=== PATIENT | female | born 1975 | race Caucasian/White ===

== ENCOUNTER → 2017-04-09 | Outpatient (CLI) | payer BC ==
--- NOTE | ~2017-04-09 | EKG ---
PATIENT: JOHNSON MÉNDEZ UNIT #: [id number] Ventricular Rate: 63 BPM Atrial Rate: 63 BPM P-R Interval: 160 ms QRS Duration: 86 ms Q-T Interval: 438 ms QTC Calculation(Bezet): 448 ms P [place]: 21 degrees Calculated R [place]: -16 degrees Calculated T [place]: 6 degrees Diagnosis Line: Normal sinus rhythm Diagnosis Line: Voltage criteria for left ventricular hypertrophy Diagnosis Line: Nonspecific ST abnormality Diagnosis Line: Abnormal ECG Diagnosis Line: No previous ECGs available Diagnosis Line: Confirmed by TOM CHERRY MD ([id number]) on Diagnosis Line: 04/10/2017 12:34:16 PM INTERPRETING MD: JO ANN PENDLETON
--- NOTE | ~2017-04-09 | CR63 ---
[facility] A Service of [facility] & [facility] RADIOLOGY TEXT RESULTS PATIENT: JOHNSON MÉNDEZ LOCATION: [facility] : 75 UNIT #: [id number] AGE: [address]: Robbin Taveras MD SEX: F ORDER DR: [id number] [facility] [address] [place], [place] [address] [id number] O MR#: [id number] Acc #: [id number] NAME: JOHNSON MÉNDEZ : 1975 SEX: F STUDY DATE/TIME: 04/09/2017 13:27 UNIT: [facility] ROOM: STUDY DESCRIPTION: CR Chest 2 View Attending Physician: Robbin Taveras M.D. Referring Physician: Robbin Taveras M.D. Ordering Physician: Robbin Taveras M.D. Primary Care Physician: Teddy Martin M.D. MEDICAL IMAGING REPORT This report is preliminary unless electronic signature is present EXAM Chest 04/09/17, [facility]. HISTORY 41-year-old woman preop clearance right total knee arthroplasty. Osteoarthritis right knee. History of hypertension, anesthesia problems. COMPARISON Preop 12/27/06. FINDINGS Two-view chest demonstrates normal cardiac size and configuration. Hilar structures and mediastinal contours are preserved. Bilateral lungs are expanded and clear with prompt probable small granuloma near the left costophrenic angle. Congenital anomaly left first, second ribs. IMPRESSION Stable chest with no acute chest finding. Dictated by... Panda Bryant M.D. THIS IS AN ELECTRONICALLY VERIFIED REPORT Panda Bryant M.D. at 04/10/2017 8:05 AM SKY/mitesh TD: 04/10/2017 07:07 JOB #: [id number] MEDICAL IMAGING REPORT Page 1 of 1 COPY
[2017-04-09 13:10] LABS: HEMATOCRIT 35.1 % (35.0-45.0); HEMOGLOBIN 12.2 gm/dL (12.0-16.0); MEAN CELL VOLUME 86.5 FL (83-96); MEAN CORPUSCULAR HEMOGLOBIN 30.2 PG (28-34); MEAN CORPUSCULAR HGB CONC 34.9 g/dL (30-36); MEAN PLATELET VOLUME 8.5 FL (6.5-11.5); RED BLOOD COUNT 4.06 X10e (3.90-5.30); RED CELL DISTRIBUTION WIDTH 12.9 % (11.0-15.5); WHITE BLOOD COUNT 9.2 X10e3 (4.0-10.5)
[2017-04-09 13:15] LABS: URINE APPEARANCE CLEAR; URINE BILIRUBIN NEG (NEG); URINE BLOOD 2+ (NEG); URINE COLOR YELLOW; URINE GLUCOSE NEG (NEG); URINE KETONE NEG (NEG); URINE LEUKOCYTE ESTERASE NEG (NEG); URINE NITRATE NEG (NEG); URINE PROTEIN NEG (NEG); URINE SPECIFIC GRAVITY 1.027 (1.003-1.035); URINE UROBILINOGEN 0.2 MG/DL (NEG)
[2017-04-09 13:18] LABS: U HYALINE CASTS AUWI 0-2 /[LPF]; URINE BACTERIA AUWI NEG (NEGATIVE); URINE SQUAMOUS EPITHELIAL CELL NONE SEEN /[HPF]; UWBCS1 AUWI 0-2 (0-5)
[2017-04-09 13:22] LABS: CULTURE INDICATED? NO; URINE SOURCE CLEAN CATCH
[2017-04-09 13:36] LABS: CALCIUM SERUM 9.7 mg/dL (8.4-10.2); CREATININE SERUM 0.8 mg/dL (0.6-1.4); GLOM FILT RATE Estimated 91.7 mL/min (>60)
[2017-04-09 13:42] LABS: PROTHROMBIN TIME (PATIENT) 10.6 SECONDS (10.0-11.7)
[2017-04-09 15:05] LABS: POTASSIUM 2.7 mmol/L (3.5-5.1)
== END | disposition home or self-care (01) ==
LOC: CLAB 12:21
PROVIDERS: Orthopaedic Surgery
DX: Z01.818 Encounter for other preprocedural examination (principal); M17.11 Unilateral primary osteoarthritis, right knee
CPT/HCPCS: 36415; 71020; 80048; 81003; 85027; 85610; 93005